=== PATIENT | female | born 1970 | race Two or more races ===

== ENCOUNTER 2016-05-11 12:09 | Emergency (ER) | payer OTHER ==
[~2016-05-11] VITALS: Ht 162.6 cm; Wt 52.6 kg
[2016-05-11 12:22] VITALS: BP 97/46
== END 2016-05-11 13:22 | disposition home or self-care (01) ==
LOC: ER 12:14
DX: S90.32XA Contusion of left foot, initial encounter (principal); I10 Essential (primary) hypertension; Z88.6 Allergy status to analgesic agent; W22.8XXA Striking against or struck by other objects, initial encounter; Y93.89 Activity, other specified; Y99.8 Other external cause status; Y92.89 Other specified places as the place of occurrence of the external cause
CPT/HCPCS: 73630

== ENCOUNTER 2016-08-20 12:43 | Emergency (ER) | payer OTHER ==
[~2016-08-20] VITALS: Ht 165.1 cm; Wt 52.6 kg
[2016-08-20 12:43] VITALS: BP 101/65
== END 2016-08-20 15:04 | disposition home or self-care (01) ==
LOC: ER 12:43
DX: H10.33 Unspecified acute conjunctivitis, bilateral (principal); I10 Essential (primary) hypertension; Z88.6 Allergy status to analgesic agent

== ENCOUNTER 2016-08-31 11:38 | Emergency (ER) | payer OTHER ==
[~2016-08-31] VITALS: Ht 124.5 cm; Wt 52.2 kg
[2016-08-31 12:12] VITALS: BP 104/52
== END 2016-08-31 12:48 | disposition home or self-care (01) ==
LOC: ER 11:42
DX: H10.13 Acute atopic conjunctivitis, bilateral (principal); I10 Essential (primary) hypertension; Z88.6 Allergy status to analgesic agent; Z90.710 Acquired absence of both cervix and uterus

== ENCOUNTER 2016-10-06 09:08 | Emergency (ER) | payer OTHER ==
[~2016-10-06] VITALS: Ht 154.9 cm; Wt 47.6 kg
[2016-10-06 10:49] VITALS: BP 90/37
== END 2016-10-06 11:34 | disposition home or self-care (01) ==
LOC: ER 09:08
DX: H57.8 Other specified disorders of eye and adnexa (principal); I10 Essential (primary) hypertension; Z88.6 Allergy status to analgesic agent; Z90.710 Acquired absence of both cervix and uterus

== ENCOUNTER 2018-11-13 14:49 | Emergency (ER) | payer OTHER, MEDICAID ==
[~2018-11-13] VITALS: Ht 154.9 cm; Wt 53.1 kg
[2018-11-13] MEDS ORDERED: LORazepam 2MG/ML-1ML VIAL IV ONE (15:00)
[2018-11-13] MEDS ORDERED: LORazepam 2MG/ML-1ML VIAL IM ONE (16:15)
[2018-11-13 16:38] VITALS: BP 95/56
== END 2018-11-13 16:43 | disposition home or self-care (01) ==
LOC: EDBD 14:49 → EDSEX 14:49 → ER 14:49
DX: F41.9 Anxiety disorder, unspecified (principal); I10 Essential (primary) hypertension; Z90.710 Acquired absence of both cervix and uterus
CPT/HCPCS: 93005; 96372; 99284; J2060

== ENCOUNTER 2021-12-25 17:57 | Emergency (ER) | payer OTHER, MEDICAID ==
[~2021-12-25] VITALS: Ht 162.6 cm; Wt 52.7 kg
[2021-12-25 19:48] LABS: Urine Bacteria NONE SEEN /hpf (None Seen); Urine Blood Negative /uL (Negative); Urine Specific Gravity 1.009 (1.001-1.035); Urine WBC <1 /hpf (0 - 5)
[2021-12-25] MEDS ORDERED: NITR-87 PO (23:03)
[2021-12-25 23:07] VITALS: BP 101/47
== END 2021-12-25 23:11 | disposition home or self-care (01) ==
LOC: ER 18:02
DX: N39.0 Urinary tract infection, site not specified (principal); I10 Essential (primary) hypertension; Z90.710 Acquired absence of both cervix and uterus; Z88.5 Allergy status to narcotic agent
CPT/HCPCS: 81001

== ENCOUNTER 2024-01-22 12:04 | Emergency (ER) | payer MEDICARE, OTHER ==
[~2024-01-22] VITALS: Ht 162.6 cm; Wt 51.7 kg
[~2024-01-22 12:04] MED LIST: NITR-87 PO
[2024-01-22 12:20] VITALS: BP 113/45; TEMP 97.8
[2024-01-22 12:34] VITALS: PULSE 74; RESP 16; O2SAT 97
[2024-01-22] MEDS ORDERED: CIPR0.3S19 OP (13:07)
[2024-01-22] MEDS ORDERED: HYDR-4902 PO (13:07)
[2024-01-22] MEDS: KETOROLAC TROMETH 30 MG/ML 1ML VIAL IM ONE (13:10)
[2024-01-22] MEDS: MECLIZINE HCL 25 MG TAB PO ONE (13:10)
[2024-01-22] MEDS ORDERED: MECL1TAB42 PO (13:19)
== END 2024-01-22 13:08 | disposition home or self-care (01) ==
LOC: ER 12:04
DX: H92.02 Otalgia, left ear (principal); R42 Dizziness and giddiness; I10 Essential (primary) hypertension; Z90.710 Acquired absence of both cervix and uterus; Z88.6 Allergy status to analgesic agent
CPT/HCPCS: 96372; 99283; J1885; J8597

== ENCOUNTER 2024-06-17 10:18 | Emergency (ER) | payer OTHER ==
[~2024-06-17] VITALS: Ht 149.9 cm; Wt 54.0 kg
[~2024-06-17 10:18] MED LIST changes: +CIPR0.3S19 OP; +HYDR-4902 PO; +MECL1TAB42 PO
[2024-06-17 10:49] VITALS: BP 106/48; PULSE 81; RESP 16; TEMP 97.7; O2SAT 98
[2024-06-17] MEDS ORDERED: AUG875T PO (11:27)
[2024-06-17] MEDS ORDERED: CETI10CA PO (11:27)
--- NOTE | 2024-06-17 11:27 | ED.PDOC ---
Eye-HPI HPI Comments Patient complaining of left ear pain and ringing says he was turning ears which has been going on since October of last year. Has pending ENT referral placed. Patient reports intermittent pain in the left ear. States she was seen last week for the pain at a urgent care and was given a pain shot and prescribed eyedrops. Patient states she has not noticed some intermittent runny nose and congestion. Nothing makes it better, nothing makes it worse. Patient reports having hard time sleeping due to the pain in his sound in her ear. Chief Complaint: Earache Time Seen by MD: 10:34 Primary Care Provider: NONE Reviewed Notes: Nurses Notes Allergies: Coded Allergies: Codeine (Verified Allergy, Unknown, 12/11/15) Home Meds Active Scripts Meclizine HCl (Meclizine 25) 25 Mg Tab, 50 MG PO DAILY, #30 TAB Prov:MARIELOS ALBA [facility] 01/22/24 Ciprofloxacin Hcl (Ophth) (Ciprofloxacin Hcl) 0.3 % Izzy, 2 DROP OP QID for 5 Days, #5 ML Prov:MARIELOS ALBA [facility] 01/22/24 Hydrocodone-Acetaminophen (Hydrocodone Bitartrate/AC 5-325 mg) 1 Tab Tab, 1 TAB PO Q6HPRN PRN, #10 TAB Prov:MARIELOS ALBA [facility] 01/22/24 Nitrofurantoin Monohydrate Mac (Macrobid) 100 Mg Cap, 100 MG PO BID for 5 Days, #10 CAP Prov:YANG QUIROS 12/25/21 Information Source: Patient, Relative Mode of Arrival: Ambulatory Past Medical History PAST MEDICAL HISTORY: Anxiety, HTN Surgical History: , Hysterectomy RESIDENTIAL APPRAISER History: No Pertinent RESIDENTIAL APPRAISER History Family History Family History: Unknown Social History Smoker: Non-Smoker Alcohol: Denies ETOH Use Drugs: Denies Drug Use Lives In: Home Constitutional: denies: chills, diaphoresis, fatigue, fever, malaise, sweats, weakness, others EENTM: reports: ear pain, ear ringing; denies: blurred vision, double vision, ear bleeding, ear discharge, ear drainage, eye pain, eye redness, hearing loss, mouth pain, mouth swelling, nasal discharge, nose bleeding, nose congestion, nose pain, photophobia, tearing, throat pain, throat swelling, voice changes, others Respiratory: denies: cough, hemoptysis, orthopnea, SOB at rest, shortness of breath, SOB with excertion, stridor, wheezing, others Cardiovascular: denies: chest pain, dizzy spells, diaphoresis, Dyspnea on exertion, edema, irregular heart beat, left arm pain, lightheadedness, palpitations, PND, syncope, others Gastrointestinal: denies: abdomen distended, abdominal pain, blood streaked bowels, constipated, diarrhea, dysphagia, difficulty swallowing, hematemesis, melena, nausea, poor appetite, poor fluid intake, rectal bleeding, rectal pain, vomiting, others Genitourinary: denies: abnormal vagina bleeding, burning, dyspareunia, dysuria, flank pain, frequency, hematuria, incontinence, pain, , vagina discharge, urgency, others Neurological: denies: dizziness, fainting, headache, left sided numbness, left sided weakness, numbness, paresthesia, pre-existing deficit, right sided numbness, right sided weakness, seizure, speech problems, tingling, tremors, weakness, others Musculoskeletal: denies: back pain, gout, joint pain, joint swelling, muscle pain, muscle stiffness, neck pain, others Integumetry: denies: bruises, change in color, change in hair/nails, dryness, laceration, lesions, lumps, rash, wounds, others Physical Exam General Appearance: No Apparent Distress, Normal HEENT: Normal ENT Inspection, Pharynx Normal, TMs Normal Neck: Full Range of Motion, Non-Tender, Normal, Normal Inspection Respiratory: Chest Non-Tender, Lungs Clear, No Accessory Muscle Use, No Respiratory Distress, Normal Breath Sounds Cardiovascular: No Edema, No JVD, No Murmur, No Gallop, Normal Peripheral Pulses, Regular Rate/Rhythm Breast Exam: Deferred Gastrointestinal: No Organomegaly, Non Tender, No Pulsatile Mass, Normal Bowel Sounds, Soft Genitalia: Deferred Pelvic: Deferred Rectal: Deferred Extremities: No calf tenderness, Normal capillary refill, Normal inspection, No rmal range of motion, Non-tender, No pedal edema Musculoskeletal : Apperance: Normal Neurologic: Alert, 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 Was a procedure done?: No EENT DIFF Eye: N/A Ear: Cerumen Impaction, Otitis Externa, Otitis Media X-Ray, Labs, Meds, VS Vital Signs Date Time Temp Pulse Resp B/P (MAP) Pulse Ox O2 Delivery O2 Flow Rate FiO2 06/17/24 10:49 81 16 98 Room Air 06/17/24 10:49 97.7 81 16 106/48 (67) 98 97.7 06/17/24 10:26 97.7 81 16 106/48 (67) 98 X-Ray, Labs, Meds, VS Comment Imaging: X-rays and CT scans were reviewed and interpreted by this provider, imaging shows no fractures and no pathological disease. Pending radiology kristina adame. Laboratory: Labs reviewed and interpreted by this provider. No significant abnormalities noted. Patient has prior medical visits reviewed. Med reconciliation performed Vital signs reviewed Time of 1ST Reevaluation: 11:27 Reevaluation 1ST: Improved Patient Education/Counseling: Diagnosis, Treatment, Need For Follow Up (Patient advised to follow-up in the emergency room in the next 24 to 48 hours if symptoms do not improve. Advised follow-up with PCP in the next 3 to 5 days. Patient verbalized understanding. ) Family Education/Counseling: Diagnosis Departure 1 Departure Time of Disposition: 11:26 Impression: Primary Impression: Earache, left Additional Impressions: Tinnitus Qualified Codes: H93.12 - Tinnitus, left ear Rhinorrhea Disposition: HOME / SELF CARE / HOMELESS Condition: Fair e-Prescriptions Cetirizine Hcl (Zyrtec Allergy) 10 Mg Cap 10 MG PO DAILY PRN, #30 CAP Prov: YANG QUIROS 06/17/24 Amoxicillin & Pot Clavulanate (AUGMENTIN TABLET) 875 Mg Tb 875 MG PO BID for 7 Days, #14 TAB Prov: YANG QUIROS 06/17/24 Discharged With: Self Critical Care Note Critical Care Time?: No Stability Stability form required: No Heart Score Heart Score: Heart Score Response (Comments) Value History N/A 0 EKG N/A 0 Age N/A 0 Risk Factors N/A 0 Troponin N/A 0 Total 0 YANG QUIROS Jun 17, 2024 11:27
== END 2024-06-17 11:35 | disposition home or self-care (01) ==
LOC: ER 10:18
DX: H93.12 Tinnitus, left ear (principal); J34.89 Other specified disorders of nose and nasal sinuses; H92.02 Otalgia, left ear; I10 Essential (primary) hypertension; Z88.5 Allergy status to narcotic agent; Z90.710 Acquired absence of both cervix and uterus; Z79.899 Other long term (current) drug therapy

== ENCOUNTER 2025-02-18 13:38 | Emergency (ER) | payer OTHER ==
[~2025-02-18] VITALS: Ht 162.6 cm; Wt 49.8 kg
[~2025-02-18 13:38] MED LIST changes: +AUG875T PO; +CETI10CA PO
[2025-02-18 13:44] VITALS: BP 102/46; PULSE 78; RESP 18; TEMP 97.5; O2SAT 97
--- NOTE | 2025-02-18 16:11 | DVH ---
CLINICAL INDICATION: pain TECHNIQUE: XY R SHOULDER 2+ VIEW XRAY Comparison: None FINDINGS/IMPRESSION: : There is no evidence of acute fracture or dislocation. Soft tissues are unremarkable.
[2025-02-18] MEDS ORDERED: TRAM-626 PO (16:24)
--- NOTE | 2025-02-18 16:26 | ED.PDOC ---
Musculoskeletal HPI Comments 55-year-old female presents to the ER with a prior MHx of [place] and is currently with the with a chief complaint of shoulder pain. Has been reports the patient having right shoulder pain for the past few weeks and recently radiating to the hand. Patient notes on having constant pain. Denies any other symptoms at this time. Denies fevers chills night sweats nausea vomiting redness around the shoulder Denies previous surgeries to the shoulder or significant injury Numbness/tingling down the arm Denies changes, shortness of breath Chief Complaint: Upper Extremity Time Seen by MD: 16:35 Primary Care Provider: NONE Reviewed Notes: Nurses Notes, Medications, Allergies Allergies: Coded Allergies: Codeine (Verified Allergy, Unknown, 12/11/15) Home Meds Active Scripts Tramadol HCl (Tramadol HCl) 50 Mg Tab, 50 MG PO Q8HP PRN for 7 Days, #21 TAB 0 Refills Prov:FAISAL BACK WHEEL CUTTER 02/18/25 Cetirizine Hcl (Zyrtec Allergy) 10 Mg Cap, 10 MG PO DAILY PRN, #30 CAP Prov:YANG QUIROSP 06/17/24 Amoxicillin & Pot Clavulanate (AUGMENTIN TABLET) 875 Mg Tb, 875 MG PO BID for 7 Days, #14 TAB Prov:YANG QUIROSP 06/17/24 Meclizine HCl (Meclizine 25) 25 Mg Tab, 50 MG PO DAILY, #30 TAB Prov:MARIELOS ALBA 01/22/24 Ciprofloxacin Hcl (Ophth) (Ciprofloxacin Hcl) 0.3 % Izzy, 2 DROP OP QID for 5 Days, #5 ML Prov:MARIELOS ALBA 01/22/24 Hydrocodone-Acetaminophen (Hydrocodone Bitartrate/AC 5-325 mg) 1 Tab Tab, 1 TAB PO Q6HPRN PRN, #10 TAB Prov:MARIELOS ALBA 01/22/24 Nitrofurantoin Monohydrate Mac (Macrobid) 100 Mg Cap, 100 MG PO BID for 5 Days, #10 CAP Prov:YANG QUIROS 12/25/21 Information Source: Patient, Spouse Mode of Arrival: Ambulatory Location: Right Extremity Location: Shoulder Timing: Weeks Prehospital treatment: None Severity: Moderate Able to Move Extremity: Yes Bear Weight: Limited Pain: Moderate Hand Dominance: Right Mechanism: Spontaneous Circumstances: Spontaneous Onset of Symptoms: Spontaneous Symptoms: Pain DVT Risk Factors: NONE Associated signs and symptoms: Shoulder pain Past Medical History PAST MEDICAL HISTORY: Anxiety, HTN Surgical History: , Hysterectomy MOBILE HOME SET UP PERSON History: No Pertinent MOBILE HOME SET UP PERSON History Family History Family History: Reviewed,noncontributory to illness, Unknown Social History Smoker: Non-Smoker Alcohol: Denies ETOH Use Drugs: Denies Drug Use Lives In: Home Constitutional: denies: chills, diaphoresis, fatigue, fever, malaise, sweats, weakness, others EENTM: denies: blurred vision, double vision, ear bleeding, ear discharge, ear drainage, ear pain, ear ringing, eye pain, eye redness, hearing loss, mouth pain, mouth swelling, nasal discharge, nose bleeding, nose congestion, nose pain, photophobia, tearing, throat pain, throat swelling, voice changes, others Respiratory: denies: cough, hemoptysis, orthopnea, SOB at rest, shortness of breath, SOB with excertion, stridor, wheezing, others Cardiovascular: denies: chest pain, dizzy spells, diaphoresis, Dyspnea on exertion, edema, irregular heart beat, left arm pain, lightheadedness, palpitations, PND, syncope, others Gastrointestinal: denies: abdomen distended, abdominal pain, blood streaked bowels, constipated, diarrhea, dysphagia, difficulty swallowing, hematemesis, melena, nausea, poor appetite, poor fluid intake, rectal bleeding, rectal pain, vomiting, others Genitourinary: denies: abnormal vagina bleeding, burning, dyspareunia, dysuria, flank pain, frequency, hematuria, incontinence, pain, , vagina discharge, urgency, others Neurological: denies: dizziness, fainting, headache, left sided numbness, left sided weakness, numbness, paresthesia, pre-existing deficit, right sided numbness, right sided weakness, seizure, speech problems, tingling, tremors, weakness, others Musculoskeletal: reports: others (Right shoulder pain); denies: back pain, gout, joint pain, joint swelling, muscle pain, muscle stiffness, neck pain Integumetry: denies: bruises, change in color, change in hair/nails, dryness, laceration, lesions, lumps, rash, wounds, others Allergic/Immunocompromised: denies: Difficulty Healing, Frequent Infections, Hives, Itching, others Hematologic/Lymphatic: denies: anemia, blood clots, easy bleeding, easy bruising, swollen glands, others Endocrine: denies: excessive hunger, excessive sweating, excessive thirst, excessive urination, flushing, intolerance to cold, intolerance to heat, unexplained weight gain, unexplained weight loss, others Psychiatric: denies: anxiety, bipolar disorder, depression, hopeless, panic disorder, schizophrenia, sleepless, suicidal, others All Other Systems: Reviewed and Negative Physical Exam Exam Comments No deformity, pain during flexion, radial pulse 2 +, neurovascular sensation intact General Appearance: No Apparent Distress, Normal HEENT: Normal ENT Inspection, Pharynx Normal, TMs Normal Neck: Full Range of Motion, Non-Tender, Normal, Normal Inspection Respiratory: Chest Non-Tender, Lungs Clear, No Accessory Muscle Use, No Respiratory Distress, Normal Breath Sounds Cardiovascular: No Edema, No JVD, No Murmur, No Gallop, Normal Peripheral Pulses, Regular Rate/Rhythm Breast Exam: Deferred Gastrointestinal: No Organomegaly, Non Tender, No Pulsatile Mass, Normal Bowel Sounds, Soft Genitalia: Deferred Pelvic: Deferred Rectal: Deferred Extremities: No calf tenderness, Normal capillary refill, Normal inspection, Normal range of motion, Non-tender, No pedal edema Musculoskeletal : Apperance: Normal 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 Was a procedure done?: No Differential Diagnosis EXT Differential Diagnosis: Sprain, Strain X-Ray, Labs, Meds, VS Vital Signs Date Time Temp Pulse Resp B/P (MAP) Pulse Ox O2 Delivery O2 Flow Rate FiO2 02/18/25 13:44 97.5 78 18 102/46 97 97.5 X-Ray, Labs, Meds, VS Comment 55-year-old female presents to the ER with a prior MHx of [place] and is currently with the with a chief complaint of shoulder pain. Patient arrives alert and oriented, ABC's intact, afebrile, vital signs stable, saturating well in room air Diagnostic imaging ordered by me and results interpreted by radiology : Right shoulder x-ray Disposition: Discharge. Strict return precautions discussed with the patient with full understanding. Supportive care advised (rest, ice, heat, NSAIDs, stretching exercises) Massage muscles with cold pack or ice for 20 minutes 4 times per day. Usually most useful if there is swelling during the first 48 hours Heating pad on the most painful area for 20 minutes to relieve muscle spasm Sleep and the most comfortable sleeping position (usually on the side with knees bent) Light stretching, no strenuous activity, avoid frequent bending, avoid carrying heavy objects On reevaluation, patient had symptomatic improvement. Patient is stable for discharge at this time. External notes reviewed. Test results and diagnostic imaging interpreted. All diagnostic findings, discharge care, education and instructions provided Follow-up with PCP in 2 to 3 days Patient verbalized understanding and agreed to treatment plan Vital signs stable, afebrile, no acute distress noted Patient ambulatory with strong steady gait Advised to return precautions for any new or worsening symptoms, return to ER immediately for re-evaluation Patient is aware that the purpose of this visit was for an acute medical emergency requiring emergent stabilization. Chronic conditions, including malignancies have not been ruled out. Patient is instructed to follow up with PCP as directed and discharge instructions for continued care and workup. If unable to arrange follow-up, patient is to return to the emergency department for reassessment. Patient (parent or legal guardian if applicable) was given verbal and written discharge instructions and acknowledges understanding. Additional MDM Review of External, Non-ED records: External records reviewed. Discussion with independent historian (EMS, family) history obtained from the patient/parents (if applicable) at bedside Chronic conditions affecting care: None Social determinants of health affecting care: None Consideration of admission (observation or admission): I considered escalation of care to admission for this patient, however given the reassuring workup, the patient is safe for outpatient management. Discussion with the Radiology: No Tests considered but not performed: Prescription medication considered but not given: 12 lead EKG interpretation: Time of 1ST Reevaluation: 17:05 Reevaluation 1ST: Improved Patient Education/Counseling: Diagnosis, Treatment, Prognosis Family Education/Counseling: No Family Present Departure 1 Departure Time of Disposition: 17:06 Impression: Primary Impression: Internal derangement of right shoulder Disposition: 01 HOME / SELF CARE / HOMELESS Condition: Fair e-Prescriptions Tramadol HCl (Tramadol HCl) 50 Mg Tab 50 MG PO Q8HP PRN for 7 Days, #21 TAB 0 Refills Prov: FAISAL BACK NP 02/18/25 Critical Care Note Critical Care Time?: No Stability Stability form required: No Heart Score Heart Score: Heart Score Response (Comments) Value History N/A 0 EKG N/A 0 Age N/A 0 Risk Factors N/A 0 Troponin N/A 0 Total 0 I personally scribed for FAISAL BACK NP ([email or web address]) on 02/18/25 at 16:39. Electronically submitted by Angel Dumont ([employer]). I personally scribed for FAISAL BACK NP ([email or web address]) on 02/18/25 at 16:40. Electronically submitted by Angel Dumont ([employer]). FAISAL BACK NP Feb 18, 2025 16:26
== END 2025-02-18 16:46 | disposition home or self-care (01) ==
LOC: ER 13:38
DX: M24.811 Other specific joint derangements of right shoulder, not elsewhere classified (principal); I10 Essential (primary) hypertension; F41.9 Anxiety disorder, unspecified; Z90.710 Acquired absence of both cervix and uterus; Z88.5 Allergy status to narcotic agent; Z98.890 Other specified postprocedural states
CPT/HCPCS: 73030